=== PATIENT | male | born 1960 | race Caucasian/White ===

== ENCOUNTER 2017-05-25 22:54 | Inpatient (IN) | payer OTHER ==
[~2017-05-25] VITALS: Ht 188 cm; Wt 116.1 kg
[~2017-05-25 22:54] MED LIST: NAPROXEN500 M1 ORAL
[2017-05-25 23:15] VITALS: BP 158/98
[2017-05-25] MEDS ORDERED: Ketorolac 60mg Inj IM ONE (23:45)
[2017-05-26] VITALS (7 sets, daily range): BP systolic 127–148; BP diastolic 78–97
[2017-05-26 00:11] LABS: APPEARANCE,URINE CLEAR; BILIRUBIN, URINE NEGATIVE (NEGATIVE); COLOR,URINE PALE YELLOW; GLUCOSE, URINE (UA) NEGATIVE (NEGATIVE); KETONES,URINE NEGATIVE (NEGATIVE); LEUKOCYTE ESTERASE ,URINE 1+ (NEGATIVE); NITRITE,URINE NEGATIVE (NEGATIVE); PH,URINE 7 (4.5-8.0); PROTEIN,URINE NEGATIVE (NEGATIVE); UROBILINOGEN,URINE NORMAL MG/DL (0.0-1.0)
[2017-05-26] MEDS ORDERED: Morphine Sulfate 2mg/ml Inj IVP ONE ×2 (00:30→02:00)
--- NOTE | 2017-05-26 00:44 | Emergency Room Report ---
History of Present Illness General Chief Complaint: Back Pain-No Injury Source: Patient Present Illness HPI [id number] walk-in with 1 day left flank pain, constant, non-radiating History of renal stones many years ago, states feels similar No urinary complaints Atraumatic Took tylenol with mild improvement No prior abd/pelvic surgery Allergies: Coded Allergies: APPLE (Verified Allergy, Unknown, 07/07/15) CITRUS AND DERIVATIVES (Verified Allergy, Unknown, 07/07/15) Patient History Past Medical History: other - Kidney stones Past Surgical History: none Pertinent Family History: none Social History: Denies: smoking, alcohol use, drug use Immunizations: UTD Reviewed Nursing Documentation: PMH: Agreed, PSxH: Agreed Nursing Documentation-PMH Hx Hypertension: Yes Hx Diabetes: Yes Review of Systems All Other Systems: negative except mentioned in HPI Physical Exam Vital Signs Date Time Temp Pulse Resp B/P (MAP) Pulse Ox O2 Delivery O2 Flow Rate FiO2 05/25/17 22:59 98.1 98 18 158/98 96 05/25/17 23:15 Room Air Sp02 EP Interpretation: reviewed, normal General Appearance: normal inspection, well appearing, no apparent distress, alert, GCS 15, non-toxic, obese Head: normocephalic, atraumatic Eyes: bilateral eye PERRL, bilateral eye EOMI ENT: normal ENT inspection, hearing grossly normal, normal pharynx, no angioedema, normal voice, TMs + canals normal, uvula midline, moist mucus membranes Neck: normal inspection, full range of motion, supple, thyroid normal, no meningismus, no bony tend Respiratory: normal inspection, lungs clear, normal breath sounds, no rhonchi, no respiratory distress, no retraction, no accessory muscle use, no wheezing, speaking full sentences Cardiovascular #1: regular rate, rhythm, no edema, no JVD, normal capillary refill Gastrointestinal: normal inspection, normal bowel sounds, non tender, soft, no mass, no peritonitis, non-distended, no guarding, no hernia, no pulsatile mass Genitourinary: CVA tenderness (L) Musculoskeletal: normal inspection, back normal, normal range of motion, no calf tenderness, pelvis stable, Isa's Sign negative Neurologic: normal inspection, alert, oriented x3, responsive, risk modeler III-XII nml as tested, motor strength/tone normal, cerebellar normal, normal gait, speech normal Psychiatric: normal inspection, judgement/insight normal, mood/affect normal, no suicidal/homicidal ideation, no delusions Skin: normal inspection, normal color, no rash Lymphatic: normal inspection, no adenopathy Medical Decision Making Diagnostic Impression: Primary Impression: Acute left flank pain Additional Impressions: Renal calculus Hydroureteronephrosis TETE (acute kidney injury) ER Course Significant hematuria on urinalysis CT shows [id number] stone in distal ureter with assoc mod hydroureteronephrosis, hazel-ureter/nephric stranding Labs show TETE Was hydrated, given flomax Feels comfortable after 2x morphine Will need Urology consult given large size >5mm stone Admit, med/surg bed Dr. Segovia, assigned per health plan 501am Rhythm Strip Diag. Results EP Interpretation: yes Rate: 65 Rhythm: NSR, no PVC's Last Vital Signs Date Time Temp Pulse Resp B/P (MAP) Pulse Ox O2 Delivery O2 Flow Rate FiO2 2/5/18 23:15 98.1 98 18 158/98 96 Room Air Status: improved Disposition: ADMITTED INPATIENT Condition: Improved KITTY ROMERO M.D. May 26, 2017 00:44
[2017-05-26] MEDS: Tamsulosin 0.4mg cap ORAL SCH ×3 (00:46→20:35)
[2017-05-26 00:52] LABS: BASOPHILS % (AUTO) 0.7 % (0.0-2.0); EOSINOPHILS % (AUTO) 2.4 % (0.0-3.0); HEMATOCRIT 42.9 % (42.0-52.0); HEMOGLOBIN 14.7 G/DL (14.2-18.0); LYMPHOCYTES % (AUTO) 8.1 % (20.0-45.0); MEAN CORPUSCULAR VOLUME 92 FL (80-99); MONOCYTES % (AUTO) 9.1 % (1.0-10.0); NEUTROPHILS % (AUTO) 79.7 % (45.0-75.0); PLATELET COUNT 210 K/UL (150-450); RED BLOOD COUNT 4.66 M/UL (4.70-6.10); RED CELL DISTRIBUTION WIDTH 11.8 % (11.6-14.8); WHITE BLOOD COUNT 10.5 K/UL (4.8-10.8)
[2017-05-26 01:07] LABS: ANION GAP 8 mmol/L (5-15); BLOOD UREA NITROGEN 27 mg/dL (7-18); CALCIUM 10.6 MG/DL (8.5-10.1); CARBON DIOXIDE 26 MMOL/L (21-32); CHLORIDE 102 MMOL/L (98-107); CREATININE 2.3 MG/DL (0.55-1.30); POTASSIUM 4.1 MMOL/L (3.5-5.1); SODIUM 136 MMOL/L (136-145)
[2017-05-26 01:11] LABS: ALANINE AMINOTRANSFERASE 24 U/L (12-78); ALBUMIN 3.9 G/DL (3.4-5.0); ALBUMIN/GLOBULIN RATIO 1.1 (1.0-2.7); ALKALINE PHOSPHATASE 74 U/L (46-116); ASPARTATE AMINO TRANSFERASE 14 U/L (15-37); BILIRUBIN,TOTAL 0.5 MG/DL (0.2-1.0)
--- NOTE | 2017-05-26 12:43 | Diagnostic Imaging Report ---
02/16/2008 Indication: Pain Technique: Spiral acquisitions obtained through the abdomen and pelvis. No oral or IV contrast utilized, per urinary stone protocol. Multiplanar reconstructions were generated. Total dose length product 1049.84 mGycm. CTDIvol(s) 18.4 mGy. Dose reduction achieved using automated exposure control Comparison: 02/16/2008 Findings: There is a 13 x 6 mm calculus in the distal left ureter, just proximal to the ureterovesical junction. There is resultant marked left hydroureter and moderate left hydronephrosis. There is considerable perinephric and periureteral fat stranding. There is a 9 mm calculus in the left lower pole collecting system. There is a 2 mm calculus in the right upper pole collecting system. There is a faint 2 mm calculus in the right kidney, uncertain as to whether calyceal or parenchymal although probably the former. There is a 3 mm calculus in the lower pole. Lack of IV contrast limits assessment of the renal parenchyma. There are multiple bilateral renal cysts. Lack of IV contrast limits assessment of the other solid organs. The liver, gallbladder, bile ducts, pancreas, spleen, adrenals are unremarkable. No retroperitoneal or mesenteric mass or adenopathy. No pelvic mass or adenopathy. There is colonic diverticulosis. No evidence of diverticulitis. The appendix is normal. A few prominent fluid-filled small bowel loops are seen in the left upper quadrant. No free or loculated intraperitoneal air or fluid is evident. There are small fat-containing bilateral inguinal hernias. Distal esophagus, stomach, duodenum are unremarkable the included lung bases are clear. There are mild degenerative changes of the lumbar spine Impression: Positive for 13 x 6 mm distal left ureteral calculus, just proximal to the ureterovesical junction. Resultant marked left hydroureter and moderate left hydronephrosis Nonobstructive bilateral intrarenal calculi Colonic diverticulosis. No evidence of diverticulitis Nonspecific prominent fluid-filled left upper quadrant small bowel loops Small fat-containing bilateral inguinal hernias Degenerative lumbar spondylosis This agrees with the preliminary interpretation provided overnight by [facility] teleradiology service. The CT scanner at [facility] is accredited by the [employer] and the scans are performed using protocols designed to limit radiation exposure to as low as reasonably achievable to attain images of sufficient resolution adequate for diagnostic evaluation.
[2017-05-26] MEDS: Hydromorphone 0.5mg/0.5ml inj IVP PRN ×2 (13:41→20:37)
[2017-05-26] MEDS ORDERED: ESCITALOPRAM OXA5 MG PO (14:34)
[2017-05-26] MEDS ORDERED: NORVASC10 MG ORAL (14:34)
[2017-05-26] MEDS ORDERED: LIPITOR80 MG ORAL (14:34)
[2017-05-26] MEDS ORDERED: ASPIR 8181 MG ORAL (14:34)
[2017-05-26] MEDS ORDERED: OMEPRAZOLE20 M2 ORAL (14:34)
[2017-05-26] MEDS ORDERED: TRUVADA 200 MG1 EAC1 ORAL (14:34)
[2017-05-26] MEDS: Atorvastatin 80mg tab ORAL SCH (20:35)
[2017-05-26] MEDS: NovoLOG Insulin Flexpen SUBQ SCH (21:00)
[2017-05-27] VITALS (7 sets, daily range): BP systolic 123–147; BP diastolic 68–91
[2017-05-27] MEDS: Zolpidem 5mg tab ORAL PRN ×2 (00:30→23:04)
--- NOTE | 2017-05-27 04:15 | History and Physical Report ---
DATE OF ADMISSION: 05/26/2017 HISTORY OF PRESENT ILLNESS: The patient is a 56-year-old male, came to the emergency room for having recurrent abdominal pain, nausea and vomiting. The patient was found on the lower back as well as on lower abdomen right side. PAST MEDICAL HISTORY: The patient also had a past medical history of hypertension, diabetes and obesity. MEDICATIONS: He is taking Janumet, Norvasc and Lipitor. ALLERGIES: NKA. FAMILY HISTORY: Noncontributory. SOCIAL HISTORY: Lives at home. He denies any smoking and drinking and denies any illegal drugs. REVIEW OF SYSTEMS: Generalized weakness, tired, mild back pain, and abdominal pain. Never had this kind of issue before. PHYSICAL EXAMINATION: GENERAL: This is an elderly male who is currently awake, lying in the bed, was just given pain medication. His pain is subsided. VITAL SIGNS: His current blood pressure is 140/90, pulse 74, and respirations 18. SKIN: Good skin turgor. HEENT: NAD. CHEST: Bilaterally clear. CARDIOVASCULAR: Regular rhythm. No gallop. No murmur. ABDOMEN: Soft. Mild abdominal pain on the left side. EXTREMITIES: CCE. NEUROLOGICAL: The patient has no focal deficits. LABORATORY AND DIAGNOSTIC DATA: Ultrasound showing renal stones. ASSESSMENT AND PLAN: 1. Renal colic. 2. Renal stones. 3. Hypertension. 4. Diabetes. 5. Obesity. Consider Neurology consult, to continue current treatment, IV fluid, pain medicine, Zofran and antibiotics. Jonathan Segovia M.D. DR: ABHISHEK JOB#: [id number] CC:
[2017-05-27] MEDS: NovoLOG Insulin Flexpen SUBQ SCH ×4 (06:11→21:00)
--- NOTE | 2017-05-27 06:30 | Consultation ---
DATE OF CONSULTATION: 05/26/2017 CONSULTING PHYSICIAN: Shiraz Carlin M.D. REFERRING PHYSICIAN: Jonathan Segovia M.D. REASON FOR CONSULTATION: Evaluation of renal colic. HISTORY OF PRESENT ILLNESS: This is a 56-year-old male, who came to the emergency room because of left-sided flank pain. He was noted to have acute kidney injury. CT scan showed obstructive stone in the ureter. Urology evaluation requested. PAST MEDICAL HISTORY: Significant for a history of hypertension and diabetes. MEDICATIONS: Current medications in the hospital reviewed. ALLERGIES: No known drug allergies. PHYSICAL EXAMINATION: VITAL SIGNS: Stable, temperature is 98.4, blood pressure is 120/94. ABDOMEN: Soft. LABORATORY DATA: Reviewed. Urinalysis showed 20 to 30 RBCs. White count is 7.5, hemoglobin 13.7, and platelets 210. BUN is 25, creatinine is 2.3. DIAGNOSTIC IMAGING STUDIES: The patient had a CT scan of the abdomen and pelvis with a mention of a 13 mm stone in the distal left ureter. There was mention of moderate left hydronephrosis and some perinephric stranding. There was also a 9 mm stone in the left lower pole of the collecting system and there was a 2 mm calculus on the right upper pole. IMPRESSION: 1. Left distal ureteral calculus. 2. Bilateral renal calculi. 3. Left hydronephrosis. 4. Hematuria. 5. Acute kidney injury. 6. Renal cyst. PLAN AND DISCUSSION: The patient will need to be given pain medication. I also started Flomax for a trial of passage of urine . Renal function to be monitored. I will also order a KUB and he was not able to pass the stone in many trials. Ureteroscopy with laser lithotripsy kidney stone. Thank you for this consultation. Shiraz Carlin M.D. DR: MILA JOB#: [id number] CC:
--- NOTE | 2017-05-27 08:38 | Urology Progress Note ---
Assessment/Plan Assessment/Plan 1. Left distal ureteral calculus. 2. Bilateral renal calculi. 3. Left hydronephrosis. 4. Hematuria. 5. Acute kidney injury. 6. Renal cyst. d/w pt re options of tx trial of passage ureteroscopy with laser/stent and poss ESWL will work on scheduling monitor renal fxn films reviewed Subjective Allergies: Coded Allergies: APPLE (Verified Allergy, Unknown, 07/07/15) CITRUS AND DERIVATIVES (Verified Allergy, Unknown, 07/07/15) Subjective feels fair Objective Last 24 Hour Vital Signs Date Time Temp Pulse Resp B/P (MAP) Pulse Ox O2 Delivery O2 Flow Rate FiO2 05/27/17 08:04 98.2 90 18 140/85 98 05/27/17 04:24 97.9 101 18 123/89 94 05/27/17 04:00 96 Room Air 05/27/17 00:00 98.2 102 20 137/68 95 05/27/17 00:00 95 Room Air 05/26/17 21:02 101 129/94 05/26/17 20:00 98.4 101 20 129/94 97 05/26/17 20:00 97 Room Air 05/26/17 17:32 98.9 05/26/17 16:00 99.0 108 20 137/78 97 05/26/17 12:00 97.3 68 20 135/80 94 Intake and Output 05/26/17 05/27/17 19:00 07:00 Intake Total 580 ml 1380 ml Balance 580 ml 1380 ml Intake Oral 480 ml 480 ml IV Total 100 ml 900 ml # Voids 2 2 Current Medications Medications (Trade) Dose Ordered Sig/Doris Route PRN Reason Start Time Stop Time Status Last Admin Dose Admin Acetaminophen (Tylenol) 650 mg Q4H PRN ORAL Mild Pain/Temp > 100.5 05/26/17 12:30 06/25/17 12:29 05/26/17 16:33 Acetaminophen/ Hydrocodone Bitart ([place] 5/325) 1 tab Q4H PRN ORAL Moderate Pain (Pain Scale 4-6) 05/26/17 12:30 06/02/17 12:29 Amlodipine Besylate (Norvasc) 10 mg DAILY ORAL 05/26/17 19:30 06/25/17 19:29 Atorvastatin Calcium (Lipitor) 80 mg BEDTIME ORAL 05/26/17 21:00 06/25/17 20:59 05/26/17 20:35 Dextrose (Dextrose 50%) STAT PRN IV Hypoglycemia 05/26/17 19:30 06/25/17 19:29 Emtricitabine/ Tenofovir (Truvada 200/ 300mg) 1 tab DAILY ORAL 05/27/17 09:00 06/26/17 08:59 UNV Escitalopram Oxalate (Lexapro) 10 mg DAILY ORAL 05/27/17 09:00 06/26/17 08:59 Hydromorphone HCl (Dilaudid) 0.5 mg Q4H PRN IVP Severe Pain (Pain Scale 7-10) 05/26/17 12:30 06/02/17 12:29 05/26/17 20:37 Insulin Aspart (NovoLOG) BEFORE MEALS AND HS SUBQ 05/26/17 21:00 06/25/17 20:59 Levofloxacin 100 ml @ 100 mls/hr Q24H IVPB 05/26/17 11:30 06/02/17 11:29 05/26/17 11:57 Non-Formulary Medication (Non-Formulary Med) 1 ea DAILY ORAL 05/27/17 09:00 06/26/17 08:59 UNV Ondansetron HCl (Zofran) 4 mg EVERY 4 HOURS PRN IVP Nausea & Vomiting 05/26/17 10:00 06/25/17 09:59 Pantoprazole (Protonix) 40 mg DAILY ORAL 05/27/17 09:00 06/26/17 08:59 Sodium Chloride 1,000 ml @ 100 mls/hr Q10H IV 05/26/17 10:45 06/25/17 10:44 05/27/17 02:33 Tamsulosin HCl (Flomax) 0.4 mg BEDTIME ORAL 05/26/17 21:00 06/25/17 20:59 05/26/17 20:35 Zolpidem Tartrate (Ambien) 10 mg HSPRN PRN ORAL Insomnia 05/26/17 23:15 06/02/17 23:14 05/27/17 00:30 Height (Feet): 6 Height (Inches): 2.00 Weight (Pounds): 256 Objective no CVAT JEFERSON MONTAGUE May 27, 2017 08:38
[2017-05-27 08:59] LABS: BASOPHILS % (AUTO) 0.6 % (0.0-2.0); EOSINOPHILS % (AUTO) 3.1 % (0.0-3.0); HEMATOCRIT 39.1 % (42.0-52.0); HEMOGLOBIN 13.3 G/DL (14.2-18.0); LYMPHOCYTES % (AUTO) 9.4 % (20.0-45.0); MEAN CORPUSCULAR VOLUME 94 FL (80-99); MONOCYTES % (AUTO) 10.5 % (1.0-10.0); NEUTROPHILS % (AUTO) 76.3 % (45.0-75.0); PLATELET COUNT 179 K/UL (150-450); RED BLOOD COUNT 4.14 M/UL (4.70-6.10); RED CELL DISTRIBUTION WIDTH 11.7 % (11.6-14.8)
[2017-05-27] MEDS ORDERED: Aspirin Baby 81mg NG SCH (09:00)
[2017-05-27 09:21] LABS: ALANINE AMINOTRANSFERASE 17 U/L (12-78); ALBUMIN 3.1 G/DL (3.4-5.0); ALBUMIN/GLOBULIN RATIO 0.9 (1.0-2.7); ALKALINE PHOSPHATASE 60 U/L (46-116); ANION GAP 6 mmol/L (5-15); ASPARTATE AMINO TRANSFERASE 11 U/L (15-37); BILIRUBIN,TOTAL 0.6 MG/DL (0.2-1.0); BLOOD UREA NITROGEN 19 mg/dL (7-18); CALCIUM 8.9 MG/DL (8.5-10.1); CARBON DIOXIDE 29 MMOL/L (21-32); CHLORIDE 105 MMOL/L (98-107); CREATININE 2.3 MG/DL (0.55-1.30); POTASSIUM 4.8 MMOL/L (3.5-5.1); SODIUM 140 MMOL/L (136-145)
[2017-05-27] MEDS: metFORMIN 500mg tab ORAL SCH (09:30)
[2017-05-27] MEDS: sitaGLIPtin 50mg tab ORAL SCH (09:30)
--- NOTE | 2017-05-27 12:57 | Diagnostic Imaging Report ---
Indication: Abdominal pain Technique: Supine view of the abdomen Comparison: Reference made to CT scan 05/26/2017 Findings: Body habitus limits evaluation. Previously demonstrated left distal ureteral calculus is visible in the same location as previously. Bowel gas pattern is unremarkable. Intrarenal calculi reported on CT scan are not visible on plain radiograph Impression: Stable position of left distal ureteral calculus Other findings as noted Images previously reviewed in person with Dr. Carlin
[2017-05-27] MEDS ORDERED: guaiFENesin DM 100mg/5ml ORAL PRN (16:30)
[2017-05-27] MEDS: Atorvastatin 80mg tab ORAL SCH (20:54)
[2017-05-27] MEDS: Tamsulosin 0.4mg cap ORAL SCH (20:54)
[2017-05-28] MEDS: NovoLOG Insulin Flexpen SUBQ SCH ×4 (06:30→21:00)
[2017-05-28] MEDS: sitaGLIPtin 50mg tab ORAL SCH (08:25)
[2017-05-28] MEDS: metFORMIN 500mg tab ORAL SCH (08:25)
--- NOTE | 2017-05-28 10:17 | Urology Progress Note ---
Assessment/Plan Assessment/Plan 1. Left distal ureteral calculus. 2. Bilateral renal calculi. 3. Left hydronephrosis. 4. Hematuria. 5. Acute kidney injury. 6. Renal cyst. d/w pt re options of tx trial of passage ureteroscopy with laser/stent and poss ESWL will work on scheduling pt was on ASA, may be safer to wait a few more days plan surg tentatively for Thursday 06/01 monitor renal fxn films reviewed with radiologist d/w Dr. Segovia Subjective Allergies: Coded Allergies: APPLE (Verified Allergy, Unknown, 07/07/15) CITRUS AND DERIVATIVES (Verified Allergy, Unknown, 07/07/15) Subjective feels fair Objective Last 24 Hour Vital Signs Date Time Temp Pulse Resp B/P (MAP) Pulse Ox O2 Delivery O2 Flow Rate FiO2 05/28/17 08:25 87 147/91 05/27/17 23:55 98.5 87 19 147/91 96 Room Air 05/27/17 20:00 99.3 99 20 137/75 93 Room Air 05/27/17 16:00 97.9 98 20 140/84 94 05/27/17 12:00 97.5 74 18 145/86 98 Room Air Intake and Output 05/27/17 05/28/17 19:00 07:00 Intake Total 1420 ml 1200 ml Balance 1420 ml 1200 ml Intake Oral 420 ml IV Total 1000 ml 1200 ml # Voids 4 1 Height (Feet): 6 Height (Inches): 2.00 Weight (Pounds): 256 Objective no JEFERSON DANG May 28, 2017 10:17
[2017-05-28 12:00] VITALS: BP 126/84
[2017-05-28] MEDS ORDERED: Zolpidem 5mg tab ORAL PRN (13:15)
[2017-05-28 16:57] VITALS: BP 117/64
[2017-05-28] MEDS: Norco 5mg/325mg tab ORAL PRN (17:15)
[2017-05-28 20:00] VITALS: BP 114/79
--- NOTE | 2017-05-28 20:15 | History and Physical Report ---
DATE OF ADMISSION: 05/27/2017 HISTORY OF PRESENT ILLNESS: The patient was complaining of abdominal pain. Discussed with the patient's primary care physician as well as discussed with Dr. Carlin. The patient was still not ready to go home. He started having the pain. He was given pain medication. PHYSICAL EXAMINATION: ABDOMEN: Soft. Mild tenderness. EXTREMITIES: CCE. GENITOURINARY: The patient also claims he has difficulty in urination. LABORATORY DATA: Otherwise, his laboratories were unremarkable. ASSESSMENT: 1. Urinary incontinence. 2. Renal stones. 3. Renal colic. PLAN: 1. We will continue current treatment. 2. Soft diet. 3. Pain medicine and antibiotics. 4. Dr. Carlin is on Urology consult. 5. The patient already discussed with primary care. Discussed with the patient's primary care physician. Jonathan Segovia M.D. DR: TRISTIN JOB#: [id number] CC:
[2017-05-28] MEDS: Tamsulosin 0.4mg cap ORAL SCH (20:32)
[2017-05-28] MEDS: Atorvastatin 80mg tab ORAL SCH (20:32)
--- NOTE | 2017-05-28 22:30 | Progress Note ---
DATE: 05/28/2017 SUBJECTIVE: The patient is currently doing better. He is on IV fluid. Tolerating diet. He advanced diet. OBJECTIVE: VITAL SIGNS: Stable. CHEST: Bilaterally clear. CARDIOVASCULAR: Regular rhythm. ABDOMEN: Soft. EXTREMITIES: CCE. ASSESSMENT: 1. Renal colic, . 2. Diabetes. 3. Hypertension. 4. Obesity. PLAN: 1. We will currently continue current treatment. 2. Continue IV fluid. 3. Soft diet. 4. Waiting for surgery. Jonathan Segovia M.D. DR: ABHISHEK JOB#: [id number] CC:
[2017-05-29] VITALS: BP 128/73
[2017-05-29 04:00] VITALS: BP 140/88
[2017-05-29] MEDS: Norco 5mg/325mg tab ORAL PRN ×3 (04:42→17:57)
[2017-05-29] MEDS: NovoLOG Insulin Flexpen SUBQ SCH ×3 (06:30→14:57)
--- NOTE | 2017-05-29 08:25 | Urology Progress Note ---
Assessment/Plan Assessment/Plan 1. Left distal ureteral calculus. 2. Bilateral renal calculi. 3. Left hydronephrosis. 4. Hematuria. 5. Acute kidney injury. 6. Renal cyst. d/w pt re options of tx trial of passage ureteroscopy with laser/stent and poss ESWL will work on scheduling pt was on ASA, may be safer to wait a few more days plan surg tentatively for Thursday 06/01 monitor renal fxn films reviewed with radiologist d/w nursing staff Subjective Allergies: Coded Allergies: APPLE (Verified Allergy, Unknown, 07/07/15) CITRUS AND DERIVATIVES (Verified Allergy, Unknown, 07/07/15) Subjective feels fair, still with some pain Objective Last 24 Hour Vital Signs Date Time Temp Pulse Resp B/P (MAP) Pulse Ox O2 Delivery O2 Flow Rate FiO2 05/29/17 04:00 97.8 88 19 140/88 96 Room Air 05/29/17 00:00 98.4 95 19 128/73 96 Room Air 05/28/17 20:00 98.8 89 19 114/79 94 Room Air 05/28/17 16:57 97.8 82 18 117/64 98 Room Air 05/28/17 12:00 98.8 93 20 126/84 95 05/28/17 08:25 87 147/91 Intake and Output 05/28/17 05/29/17 19:00 07:00 Intake Total 4100 ml 700 ml Balance 4100 ml 700 ml Intake Oral 2800 ml IV Total 1300 ml 700 ml # Voids 7 2 Current Medications Medications (Trade) Dose Ordered Sig/Doris Route PRN Reason Start Time Stop Time Status Last Admin Dose Admin Acetaminophen (Tylenol) 650 mg Q4H PRN ORAL Mild Pain/Temp > 100.5 05/26/17 12:30 06/25/17 12:29 05/26/17 16:33 Acetaminophen/ Hydrocodone Bitart ([place] 5/325) 1 tab Q4H PRN ORAL Moderate Pain (Pain Scale 4-6) 05/26/17 12:30 06/02/17 12:29 05/29/17 04:42 Amlodipine Besylate (Norvasc) 10 mg DAILY ORAL 05/26/17 19:30 06/25/17 19:29 05/28/17 08:25 Atorvastatin Calcium (Lipitor) 80 mg BEDTIME ORAL 05/26/17 21:00 3/8/18 20:59 05/28/17 20:32 Dextrose (Dextrose 50%) STAT PRN IV Hypoglycemia 05/26/17 19:30 06/25/17 19:29 Emtricitabine/ Tenofovir (Truvada 200/ 300mg) 1 tab QOD ORAL 05/30/17 09:00 06/29/17 08:59 Escitalopram Oxalate (Lexapro) 10 mg DAILY ORAL 05/27/17 09:00 06/26/17 08:59 05/28/17 08:24 Guaifenesin/ Dextromethorphan (Robitussin DM) 5 ml Q6HR PRN ORAL For Cough 05/27/17 16:30 06/26/17 16:29 05/27/17 16:56 Hydromorphone HCl (Dilaudid) 0.5 mg Q4H PRN IVP Severe Pain (Pain Scale 7-10) 05/26/17 12:30 06/02/17 12:29 05/26/17 20:37 Insulin Aspart (NovoLOG) BEFORE MEALS AND HS SUBQ 05/26/17 21:00 06/25/17 20:59 Levofloxacin 100 ml @ 100 mls/hr Q24H IVPB 05/26/17 11:30 06/02/17 11:29 05/28/17 11:59 Metformin HCl (Glucophage) 1,000 mg DAILY ORAL 05/27/17 09:30 06/26/17 09:29 05/28/17 08:25 Ondansetron HCl (Zofran) 4 mg EVERY 4 HOURS PRN IVP Nausea & Vomiting 05/26/17 10:00 06/25/17 09:59 Pantoprazole (Protonix) 40 mg DAILY ORAL 05/27/17 09:00 06/26/17 08:59 05/28/17 08:25 Sitagliptin Phosphate (Januvia) 50 mg DAILY ORAL 05/27/17 09:30 06/26/17 09:29 05/28/17 08:25 Sodium Chloride 1,000 ml @ 100 mls/hr Q10H IV 05/26/17 10:45 06/25/17 10:44 05/28/17 23:12 Tamsulosin HCl (Flomax) 0.4 mg BEDTIME ORAL 05/26/17 21:00 06/25/17 20:59 05/28/17 20:32 Zolpidem Tartrate (Ambien) 5 mg HSPRN PRN ORAL Insomnia 05/28/17 13:15 06/04/17 13:14 05/28/17 23:12 Height (Feet): 6 Height (Inches): 2.00 Weight (Pounds): 256 Objective no RADHAAT JEFERSON MONTAGUE May 29, 2017 08:25
[2017-05-29 08:51] VITALS: BP 126/66
[2017-05-29] MEDS: metFORMIN 500mg tab ORAL SCH (08:56)
[2017-05-29] MEDS: sitaGLIPtin 50mg tab ORAL SCH (08:57)
[2017-05-29 11:52] VITALS: BP 133/74
[2017-05-29] MEDS: Hydromorphone 0.5mg/0.5ml inj IVP PRN (15:15)
[2017-05-29 16:10] VITALS: BP 117/79
[2017-05-29] MEDS ORDERED: TRAMADOL HCL100 M2 ORAL (17:28)
[2017-05-29] MEDS ORDERED: LEVAQUIN500 MG ORAL (17:29)
[2017-05-29] MEDS ORDERED: 1/2 NS 1000ml IV ONE (18:51)
--- NOTE | 2017-06-01 07:51 | Discharge Summary ---
Discharge Summary Hospital Course Date of Admission May 26, 2017 at 05:01 Date of Discharge May 29, 2017 at 18:52 Admitting Diagnosis renal stone/hydronephrosis CHERIE Goodman is a 56 year old male who was admitted on May 26, 2017 at 05:01 for Renal Stone/Hydonephrosis Hospital Course dc summary #[id number] Discharge Medications Continued Medications: Levofloxacin* (Levaquin*) 500 Mg Tablet 500 MG ORAL DAILY, #5 TAB Discharge Condition Upon Discharge: stable Discharge Disposition Patient was discharged to Home () Discharge Diagnoses: Discharge Instructions Discharge Instructions Special Instructions I have been assigned to complete a D/C Summary on this account. I was not involved in the patient management Chandni Olivares NP (Vanchtein) Jun 01, 2017 07:51
[2017-06-01] MEDS ORDERED: Iothalamate Meglumine 60% 30ML INJ ONE (08:23)
--- NOTE | 2017-06-01 22:15 | Discharge Summary 2 SIG ---
DATE OF ADMISSION: 05/26/2017 DATE OF DISCHARGE: 05/29/2017 REASON FOR ADMISSION: 56 y/old male with past medical history of diabetes, hypertension, prior history of kidney stones, presented to the emergency department with one day left flank pain, constant, and nonradiating. No difficulties with urination, no urinary complaints. No fever. No leukocytosis. BUN was [address] of the abdomen and pelvis revealed distal left ureteral calculus just proximal to the ureterovesical junction with resultant marked left hydroureter, moderate left hydronephrosis, and nonobstructive bilateral intrarenal calculi. T he patient was admitted for further management. HOSPITAL COURSE: The patient was admitted. The patient was started on IV fluids. Pain management was addressed and managed. Urology consult was requested. The patient was on empiric antibiotics. Renal function was closely monitored. Creatinine without change -2.3. Per urologist, the patient was started on Flomax and trial of the stone passage. Aspirin was on hold. Abdominal x-ray was done as per urologist and showed stable position of left distal ureteral calculus. All treatment options were discussed with the patient. The patient decided on elective surgery. Ureteroscopy with laser/stent and possible ESWL was planned for 06/01/2017. The patient was stable for discharge and return for elective surgery. FINAL DIAGNOSES: 1. Left distal ureteral calculus. 2. Bilateral renal calculi. 3. Left hydronephrosis. 4. Hematuria. 5. Acute kidney injury. 6. Renal colic. DISCHARGE MEDICATION: Continue home medication. The patient was discharged on antibiotic and Flomax. DISCHARGE INSTRUCTIONS: The patient to return for elective surgery as scheduled on 06/01/2017. Jonathan Segovia M.D. I have been assigned to dictate discharge summary on this account and I was not involved in the patient's management. Chandni Olivares (Vanchtein) N.PPriyanka DR: HEIDY JOB#: [id number] CC: YOLI
== END 2017-05-29 18:52 | disposition home or self-care (01) | DRG 694 ==
LOC: EMR 23:19 → 4E 05-26 05:01 → EDBEDREQ 05-26 05:23
DX: N13.2 Hydronephrosis with renal and ureteral calculous obstruction (principal); N17.9 Acute kidney failure, unspecified; R31.9 Hematuria, unspecified; R32 Unspecified urinary incontinence; I10 Essential (primary) hypertension; E11.9 Type 2 diabetes mellitus without complications; N28.1 Cyst of kidney, acquired; Z91.018 Allergy to other foods; E66.9 Obesity, unspecified
CPT/HCPCS: 36415; 74018; 74176; 80053; 81003; 82962; 83690; 85025; 99285; J1815; J2405

== ENCOUNTER 2017-06-01 05:51 | Day surgery (SDC) | payer OTHER ==
[~2017-06-01] VITALS: Ht 188 cm; Wt 116.1 kg
[2017-06-01] VITALS (10 sets, daily range): BP systolic 118–129; BP diastolic 57–87
[~2017-06-01 05:51] MED LIST changes: +ASPIR 8181 MG ORAL; +ESCITALOPRAM OXA5 MG PO; +LEVAQUIN500 MG ORAL; +LIPITOR80 MG ORAL; +NORVASC10 MG ORAL; +OMEPRAZOLE20 M2 ORAL; +TRAMADOL HCL100 M2 ORAL; +TRUVADA 200 MG1 EAC1 ORAL
[2017-06-01] MEDS ORDERED: Cefepime HCl 1 GM in D5W 55 ML IVPB ONE (06:30)
[2017-06-01] MEDS ORDERED: Propofol 200mg/20ml IV ONE (07:00)
[2017-06-01] MEDS ORDERED: LR 1000ml ONE (07:00)
[2017-06-01] MEDS ORDERED: Sterile Water Irrig 1000ml IRRIG ONE (07:00)
[2017-06-01] MEDS ORDERED: fentaNYL 100 mcg/2 mL IV ONE (07:00)
[2017-06-01] MEDS ORDERED: NS Irrig 4000ml IRRIG ONE (07:00)
[2017-06-01] MEDS ORDERED: Midazolam 2mg/2ml Inj ONE (07:00)
[2017-06-01] MEDS ORDERED: NS Irrig 1000ml ONE (07:00)
--- NOTE | 2017-06-01 07:21 | Pre-Procedure Note/Attestation ---
Pre-Procedure Note/Attestation Complete Prior to Procedure Planned Procedure: left Procedure Narrative: cysto, left ureteroscopy, laser and shockwave lithotripsy, ureteral stent Indications for Procedure Pre-Operative Diagnosis: left ureteral and renal calc, hydro Attestation I attest that I discussed the nature of the procedure; its benefits; risks and complications; and alternatives (and the risks and benefits of such alternatives ), prior to the procedure, with the patient (or the patient's legal employer relations representative). I attest that, if there was a reasonable possibility of needing a blood transfusion, the patient (or the patient's legal employer relations representative) was given the [facility] standardized written summary, pursuant to the Alfred Ying Blood Safety Act ([place] Health and Safety Code # 1645, as amended). I attest that I re-evaluated the patient just prior to the surgery and that there has been no change in the patient's H&P, except as documented below: n/a JEFERSON MONTAGUE Jun 01, 2017 07:21
[2017-06-01] MEDS ORDERED: cefOXitin 1gm Inj ONE (07:57)
[2017-06-01] MEDS ORDERED: Iothalamate Meglumine 60% 30ML INJ ONE ×2 (07:57→08:23)
[2017-06-01] MEDS ORDERED: NS Irrig 2000ml IRRIG ONE (08:14)
[2017-06-01] MEDS ORDERED: Hydromorphone 0.5mg/0.5ml inj IVP PRN (08:15)
[2017-06-01] MEDS ORDERED: DiphenhydrAMINE 50mg/ml Inj IVP PRN (08:15)
--- NOTE | 2017-06-01 08:23 | Anethesia Preoperative Eval ---
Anesthesia Pre-op PMH/ROS General Date of Evaluation: Jun 01, 2017 Time of Evaluation: 07:00 Anesthesiologist: Ezequiel ASA Score: ASA 3 Mallampati Score Class I : Soft palate, uvula, fauces, pillars visible Class II: Soft palate, uvula, fauces visible Class III: Soft palate, base of uvula visible Class IV: Only hard plate visible Mallampati Classification: Class III Surgeon: Raegan Diagnosis: Renal calculi Surgical Procedure: Ureteroscopy, left stent, ESWL Family History: no anesthesia problems Allergies: Coded Allergies: ACETAMINOPHEN (Verified Allergy, Severe, itching, 06/01/17) APPLE (Verified Allergy, Severe, tongue swell, 06/01/17) HYDROCODONE (Verified Allergy, Severe, itching, 06/01/17) CITRUS AND DERIVATIVES (Verified Allergy, Intermediate, mouth irritation , 06/01/17) Medications: see eMAR Past Medical History Cardiovascular: Reports: HTN, Denies: CAD, [place], valve dz, arrhythmia, other Pulmonary: Denies: asthma, COPD, KYLE, other Gastrointestinal/Genitourinary: Reports: GERD, CRI Neurologic/Psychiatric: Denies: dementia, CVA, depression/anxiety, TIA, other Endocrine: Reports: DM, Denies: hypothyroidism, steroids, other HEENT: Denies: cataract (L), cataract (R), glaucoma, KIVALINA (L), KIVALINA (R), other Hematology/Immune: Denies: anemia, DVT, bleeding disorder, other Musculoskeletal/Integumentary: Denies: OA, RA, DJD, DDD, edema, other Other: obesity PMH Narrative: HTN, DM, GERD, renal insufficiency, obesity PSxH Narrative: Knee scope, removal of renal calculi Anesthesia Pre-op Phys. Exam Physician Exam Last Vital Signs Date Time Temp Pulse Resp B/P (MAP) Pulse Ox O2 Delivery O2 Flow Rate FiO2 06/01/17 06:45 98.3 86 17 123/57 98 Room Air Constitutional: NAD Neurologic: CN 2-12 intact Cardiovascular: RRR, no M/R/G Respiratory: CTA Gastrointestinal: S/NT/ND Airway Exam Mallampati Score: Class III MO: full ROM: full Teeth: intact Anesthesia Pre-op A/P Labs Elevated Bun and Cr Accucheck 139 Studies Pre-op Studies: EKG - SR, LAHB Risk Assessment & Plan Assessment: Hypertensive, diabetic male with h/o renal calculi, GERD, obesity and impaired renal function here for ESWL, uteroscopy. Plan: GA, LMA Status Change Before Surgery: No Pre-Antibiotics Drug: Cefoxitin Given Within 1 Hr of Incision: Yes Time Given: 07:45 AZALEA SOTO M.D. Jun 01, 2017 08:23
--- NOTE | 2017-06-01 08:24 | Immediate Post-Op Evaluation ---
Immediate Post-Op Evalulation Immediate Post-Op Evalulation Procedure: Ureteroscopy, stent placement, ESWL Date of Evaluation: Jun 01, 2017 Time of Evaluation: 09:33 IV Fluids: 725 Blood Pressure Systolic: 127 Blood Pressure Diastolic: 76 Pulse Rate: 102 Respiratory Rate: 13 O2 Sat by Pulse Oximetry: 95 Temperature (Fahrenheit): 97.2 Pain Score (1-10): 0 Nausea: No Vomiting: No Complications No complication Patient Status: awake, patent, none Hydration Status: adequate Drug: Cefoxitin Given Within 1 Hr of Incision: Yes Time Given: 07:45 AZALEA SOTO M.D. Jun 01, 2017 08:24
--- NOTE | 2017-06-01 08:56 | Brief Operative Note ---
Immediate Post Operative Note Operative Note Pre-op Diagnosis: left ureteral and renal calc, hydro Procedure: cysto, left ureteroscopy, laser and shockwave lithotripsy, RPG, stone extraction , ureteral stent Post-op Diagnosis: same as pre-op Findings: other - impacted stone in distarl left ureter at ureteral orifice Surgeon: ronnell Anesthesiologist: marizol Anesthesia: general Specimen: yes - stone fragment Complications: none Condition: stable Fluids: NS Estimated Blood Loss: minimal Implant(s) used?: Yes - 6f x 28 cm left ureteral JJ stent JEFERSON MONTAGUE Jun 01, 2017 08:56
--- NOTE | 2017-06-01 09:27 | 48 Hour Post Anesthesia Eval ---
Post Anesthesia Evaluation Procedure: Ureteroscopy, stent placement, ESWL Date of Evaluation: Jun 01, 2017 Time of Evaluation: 10:00 Blood Pressure Systolic: 118 0: 71 Pulse Rate: 105 Respiratory Rate: 18 O2 Sat by Pulse Oximetry: 98 Airway: patent Nausea: No Vomiting: No Pain Intensity: 2 Hydration Status: adequate Cardiopulmonary Status: Stable Mental Status/LOC: patient returned to baseline Follow-up Care/Observations: As per surgery Post-Anesthesia Complications: No anesthetic complication Follow-up care needed: N/A AZALEA SOTO M.D. Jun 01, 2017 09:27
[2017-06-01] MEDS ORDERED: LR 1000ml 1,000 ML IV SCH (09:35)
[2017-06-01] MEDS ORDERED: Meperidine 50mg/ml Inj(FOR RIGORS ONLY) IVP ONE (09:35)
[2017-06-01] MEDS ORDERED: LR 1000ml 1,000 ML IVLG SCH (09:45)
--- NOTE | 2017-06-02 17:04 | Cardiology Report ---
APPROVED REPORT EKG Measurement Heart [id number] Normal sinus rhythm Left axis deviation Abnormal ECG
--- NOTE | 2017-06-03 00:15 | Operative Note - Dictated ---
DATE OF OPERATION: 06/01/2017 PREOPERATIVE DIAGNOSES: Obstructive left distal ureteral calculus and left renal calculus with hydronephrosis. POSTOPERATIVE DIAGNOSES: Obstructive left distal ureteral calculus and left renal calculus with hydronephrosis. PROCEDURE PERFORMED: Cystoscopy with urethral calibration, left ureteroscopy, laser lithotripsy, stone extraction, retrograde pyelogram, shockwave lithotripsy, and placement of double-J stent. OPERATING SURGEON: Shiraz Carlin M.D. ANESTHESIOLOGIST: Alfred Nieves M.D. ANESTHESIA: General. INDICATION FOR PROCEDURE: This is a pleasant 56-year-old male, who was admitted to the hospital last week because of left-sided renal colic. He was noted to have a large 13 mm stone in the left distal ureter. He also had a 9 mm stone in the left lower pole. He had mild acute kidney injury. The patient was observed in the hospital and his pain did improve. He had been on daily aspirin and after discussion, the decision was made to proceed with treatment of the stone. However, because he was on aspirin, I told him it may be safer to wait a few days and as such he was scheduled for the procedure today. He was discharged from the hospital because his pain had resolved and he came back today for treatment of obstructive stone as well as the other stone. The nature of the procedure was discussed with the patient in extensive detail. Possible risks and complications of bleeding, infection, anesthesia, damage to the urethra, bladder, ureter, and need for further surgery as such were discussed. No guarantees were given or implied. FINDINGS: The patient had a very large stone that was lodged into the distal ureter just at the left ureteral orifice that was impacted into the intramural portion of the bladder. It was treated. The other stone in the kidney was also treated. PROCEDURE IN DETAIL: Informed consent was obtained from the patient. The patient was then brought to the operating room and then placed in supine position. After successful general anesthesia was induced, the patient was then placed in the modified dorsal lithotomy position. His genital area was then prepped and draped in usual sterile fashion. Preoperative IV antibiotics have been administered. Time-out was performed. At this point, the distal urethral meatus was gently dilated. Cystoscopy was then performed. The urethra was without strictures. The prostate was moderately obstructive. The bladder was inspected carefully. I did not see any tumors. I could see the part of the stone emanating through the left ureteral orifice. I tried to grab it and pull it up, but it was too large. I did attempt to pass a wire around and mix the stone, but the wire or even an open-ended catheter would not go through because of the stone being impacted in that area. As such, I passed the holmium laser fiber, which was 200 micron through the cystoscope and I was able to break the stone down the visible part at least that was emanating from the part of the ureteral orifice. For the rest of it, I used a rigid ureteroscope and I was able to gain access just into the orifice and very slowly, I began to break down the stone. Again, it was completely impacted and I worked on the stone to make sure that the ureteral mucosa does not get damaged. I was able to break down the stone into small pieces and these pieces were then retrieved and at this point, I was able to pass the wire up as a safety wire. This was left indwelling. The stone basically in the distal part of the ureter was completely cleared. All the fragments were pulled out with tipless basket. The stone in the kidney was faintly visible on fluoroscopy that is felt to be treated with shock wave lithotripsy. Contrast was injected to delineate the lower pole, the expected location of the stone and using that as a guide, the area in question was then treated with 2500 shock waves using Dornier Sigma machine with slow rise in power. At this point, a 6-Burkin[place] x 28 cm double-J stent was also placed under fluoroscopic guidance, and it was in good position in the kidney as well as the bladder with a good curl in the bladder end. Small string was left at the bladder end. Stevenson was placed during the shockwave treatment. The patient was then awakened and was taken to the recovery room in stable condition. Blood loss was minimal. No complications. Shiraz Carlin M.D. DR: Donis JOB#: [id number] CC:
== END 2017-06-01 11:50 | disposition home or self-care (01) ==
LOC: SUR 05:51
DX: N13.2 Hydronephrosis with renal and ureteral calculous obstruction (principal); Z79.82 Long term (current) use of aspirin; I12.9 Hypertensive chronic kidney disease with stage 1 through stage 4 chronic kidney disease, or unspecified chronic kidney disease; E11.22 Type 2 diabetes mellitus with diabetic chronic kidney disease; N18.9 Chronic kidney disease, unspecified; K21.9 Gastro-esophageal reflux disease without esophagitis; Z88.6 Allergy status to analgesic agent; Z91.018 Allergy to other foods; E66.9 Obesity, unspecified; Z68.32 Body mass index [BMI] 32.0-32.9, adult
CPT/HCPCS: 52356; 82962; 93005; C1769; J0692; J0694; J1170; J1940; J2250; J2405; J2704; J3010; J7120; Q9961; 94003; 94150